=== PATIENT | female | born 1950 | race Caucasian/White ===

== ENCOUNTER 2018-06-12 15:31 | Emergency (ER) | payer MEDICARE, BC ==
[2018-06-12] MEDS ORDERED: Ondansetron INJ* 2 MG/ML VIAL IV ONE (16:11)
[2018-06-12] MEDS ORDERED: NS 0.9% 1000 ML* 1,000 ML IV ONE ×3 (16:12→20:51)
--- NOTE | 2018-06-12 16:29 | ED ---
GI/ HPI - HPI Summary HPI Summary: This patient is a 67 year old presenting to [facility] accompanied by male prompt care rn with a chief complaint of nausea and vomiting since 2 hours ago. Patient came to [place] with her friends on vacation at a park. Patient ingested several mushrooms at a park that her friend recognized and stated were edible. An hour after eating, she and another friend experienced severe nausea and vomiting and abd pain. The pain is rated 8/10 in severity. Symptoms aggravated by nothing. Symptoms alleviated by nothing. Patient additionally reports weakness. - History of Current Complaint Chief Complaint: EDNauseaVomitDiarrh Time Seen by Provider: 06/12/18 16:09 Stated Complaint: NAUSEA/VOMITING Hx Obtained From: Patient Onset/Duration: Started Hours Ago, Still Present Timing: Constant Current Severity: Moderate Pain Intensity: 8 Location of Pain: Diffuse Associated Signs and Symptoms: Positive: Other: - nausea, vomiting, weakness Aggravating Factor(s): Nothing Alleviating Factor(s): Nothing - Allergy/Home Medications Allergies/Adverse Reactions: Allergies Allergy/AdvReac Type Severity Reaction Status Date / Time No Known Allergies Allergy Verified 06/12/18 15:37 PMH/Surg Hx/FS Hx/Imm Hx Previously Healthy: Yes Endocrine/Hematology History: Denies: Hx Diabetes Cardiovascular History: Denies: Hx Hypertension Opthamlomology History: Denies: Hx Legally Blind EENT History: Denies: Hx Deafness Infectious Disease History: No Infectious Disease History: Denies: Traveled Outside the [place] in Last 30 Days - Family History Known Family History: Negative: Hypertension - Social History Alcohol Use: None Hx Substance Use: No Substance Use Type: Reports: None Hx Tobacco Use: No Smoking Status (MU): Never Smoked Tobacco Review of Systems Negative: Fever Positive: Abdominal Pain, Vomiting, Nausea Positive: Weakness All Other Systems Reviewed And Are Negative: Yes Physical Exam - Summary Physical Exam Summary: General: mildly ill appearing Skin: warm, color reflects adequate perfusion, dry Head: normal Eyes: EOMI, LIANE ENT: normal Neck: supple, nontender Respiratory: CTA, breath sounds present Cardiovascular: RRR Abdomen: soft, nontender Bowel: hypoactive bowel sounds Musculoskeletal: normal, strength/ROM intact Neurological: sensory/motor intact, A&O x3 Psychological: somnolent, responds to voice Triage Information Reviewed: Yes Vital Signs On Initial Exam: Initial Vitals Temp Pulse Resp BP Pulse Ox 96.6 F 76 18 82/50 98 06/12/18 15:38 06/12/18 15:38 06/12/18 15:38 06/12/18 15:38 06/12/18 15:38 Vital Signs Reviewed: Yes Diagnostics - Vital Signs Vital Signs Temp Pulse Resp BP Pulse Ox 06/12/18 15:38 96.6 F 76 18 82/50 98 - Laboratory Result Diagrams: 06/12/18 17:37 06/12/18 17:37 Lab Statement: Any lab studies that have been ordered have been reviewed, and results considered in the medical decision making process. GIGU Course/Dx - Course Course Of Treatment: This patient is a 67 year old presenting to [facility] accompanied by male prompt care rn with a chief complaint of nausea and vomiting since 2 hours ago. Patient ingested several mushrooms at a park that her friend recognized and stated were edible. Bloodwork Obtained. In the ED course the patient was given NS 0.9% bolus IV x3, Zofran 4mg IV. IMPROVED IN ED. VOMITING GONE. TOLERATED PO WATER. HAVING DIARRHEA IN ED. THE PATIENT WISHES TO GO HOME. RX ZOFRAN. F/U PMD; RETURN TO ED IF WORSE. - Diagnoses Provider Diagnoses: Dehydration, Vomiting and diarrhea Discharge - Sign-Out/Discharge Documenting (check all that apply): Patient Departure - Discharge Plan Condition: Stable Disposition: HOME Prescriptions: Ondansetron ODT TAB* [Zofran 4 MG Odt TAB*] 4 mg PO Q6H PRN #10 tab.odt PRN Reason: Nausea Patient Education Materials: Dehydration (ED), Acute Nausea and Vomiting (ED), Acute Diarrhea (ED) Referrals: [facility] [Outside] Additional Instructions: FOLLOW UP WITH YOUR DOCTOR. GET RECHECKED FOR ANY WORSENING OF YOUR CONDITION OR QUESTIONS OR CONCERNS. - Billing Disposition and Condition Condition: STABLE Disposition: Home - Attestation Statements Document Initiated by Marilee: Yes Documenting Lakshmiibe: Remy Corbett Provider For Whom Marilee is Documenting (Include Credential): George Atkinson MD Scribe Attestation: Remy White scribed for George Atkinson MD on 06/12/18 at 2141. Scribe Documentation Reviewed: Yes Provider Attestation: The documentation as recorded by the Remy ang Aric accurately reflects the service I personally performed and the decisions made by me, George Atkinson MD
[2018-06-12 17:54] LABS: ABS Basophils 0 10^3/ul (0-0.2); ABS Eosinophils 0 10^3/ul (0-0.6); ABS Lymphocytes 0.1 10^3/ul (1.0-4.8); ABS Monocytes 0 10^3/ul (0-0.8); ABS Neutrophils 2.6 10^3/ul (1.5-7.7); ABS Nucleated RBC 0 10^3/ul; Eosinophil % 0.1 % (0-6); Hematocrit 41 % (35-47); Hemoglobin 13.6 g/dl (12.0-16.0); Lymphocyte % 3.8 % (25-47); Mean Corpuscular HGB Conc 33 g/dl (31-36); Mean Corpuscular Hemoglobin 31 pg (27-31); Mean Corpuscular Volume 94 fL (80-97); Mean Platelet Volume 7.8 um3 (7.4-10.4); Nucleated Red Blood Cells % 0.2; Platelet Count 138 10^3/ul (150-450); Red Cell Distribution Width 13 % (10.5-15); White Blood Count 2.7 10^3/ul (3.5-10.8)
[2018-06-12] MEDS ORDERED: O ndansetron ODT 4MG 2TAB PRPK 4 MG PAK PO ONE (20:56)
[2018-06-12] MEDS ORDERED: Ondansetron ODT TAB* 4 MG ONE (21:32)
[2018-06-12 22:02] VITALS: BP 110/64
== END 2018-06-12 22:01 | disposition home or self-care (01) ==
LOC: ED 15:31
DX: E86.0 Dehydration (principal); R11.2 Nausea with vomiting, unspecified; R19.7 Diarrhea, unspecified
CPT/HCPCS: 36415; 80053; 83605; 83690; 85025; 85610; 85730; 86140; 96361; 96374; 99284; A9270-GY; J2405